=== PATIENT | male | born 1980 | race Caucasian/White ===

== ENCOUNTER 2016-06-01 07:58 | Emergency (ER) | payer OTHER ==
[~2016-06-01] VITALS: Ht 185.4 cm; Wt 77.3 kg
[2016-06-01 08:00] VITALS: BP 137/91; PULSE 107; RESP 15; O2SAT 100
--- NOTE | 2016-06-01 08:20 | ED.REPORT ---
HPI-Abd Pain M Under 42 Date of Service Jun 01, 2016 ED Provider: Dr. Ferguson Pt is a 35 year old male with a history of Hepatitis C, who presents to the ED with concerns for intermittent right sided flank pain that started 3 months ago. He reports that he was initially seen in an ER (although he does not fully remember where) and referred to urology upon the pain's first presentation. Pt was seen by Dr. Nowak who ruled out kidney stones, or any other dangerous causes for his pain. He reports that his pain was spontaneously alleviated, but has returned over the last couple of days. He denies this pain feeling musculoskeletal. Pt states that the pain keeps him awake at night, and is mildly alleviated with ibuprofen and excessive hydration. He additionally reports hematuria and mild dysuria, but denies any abdominal pain, nausea, vomiting, fevers, or any other symptoms. 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 Nursing Notes Stated Complaint: RIGHT SIDE PAIN Chief Complaint: Male Abdominal Pain Nursing Notes Reviewed: Yes Allergies: Coded Allergies: No Known Allergies (Unverified Allergy, Unknown, 06/01/16) General Time Seen by MD: 08:20 Chief Complaint Flank pain right Hx Obtained From: Patient Arrived By: Walk-in Sudden in Onset?: Yes Onset Occurred: More than a week ago... (3 months) Symptom Duration: Intermittent Location: : Flank right Quality: Painful Severity: Current: Mild Severity: Maximum: Severe Similar Sx Previous: Yes Past Medical History Past Medical History Hepatitis C Past Surgical History "Blocked Ureter in 1986" Smoking History Current Every Day Smoker Ambulatory Status Independent Review of Systems Constitutional: Denies: Chills, Fever, Malaise, Weakness - generalized Respiratory: Denies: Non-productive cough, Shortness of breath, Wheezing Cardiovascular: Denies: Syncope GI: Denies: Abdominal pain, Constipation, Diarrhea, Nausea, Vomiting Male: Reports Dysuria, Reports Flank pain, Reports Hematuria, Denies Testicular pain, Denies Urinary frequency, Denies Urinary urgency Complete sys rev & neg: except as marked. Physical Exam Initial Vital Signs Vital Signs (First) Date Time Temp Pulse Resp B/P Pulse Ox O2 Delivery O2 Flow Rate FiO2 06/01/16 08:00 36.8 107 15 137/91 100 Room Air Initial VS: Reviewed Head / Eyes: Atraumatic, Normocephalic, PERRL ENT: Mucous membranes moist, Conjunctiva normal, No scleral icterus Neck: Supple, Non-tender, Full range of motion Skin: Warm, Dry, No cyanosis Neurologic: Alert, Oriented, Nonfocal Psychiatric: Mood/affect normal, Behavior normal, Normal thought content General/Constitutional: Awake, Alert, Well appearing, Well nourished, Cooperative Respiratory / Chest: Atraumatic, Breath sounds NL, Breath sounds = bilat, No respiratory distress Cardiovascular: Regular rhythm, Heart sounds NL, No gallop, No murmurs, No rubs Heart Rate / Rhythm: Positive: Tachycardia Abdomen: Atraumatic, Soft, No guarding, No rebound Tenderness/Guarding/Rebound: Positive: Tender RLQ... (Mild) Back: Atraumatic, Inspection NL Right CVAT , with surface tenderness Interpretation & Diagnostics Lab Results Interpretation Result Diagram: 06/01/16 0833 06/01/16 0833 Test 06/01/16 08:10 06/01/16 08:33 06/01/16 08:37 Urine Color Yellow (YELLOW) Urine Appearance Clear (CLEAR,HAZY) Urine pH 6.0 (5.0-8.0) Urine Specific [place] 1.013 (1.003-1.035) Urine Protein Negativemg/dL (NEG,TRACE) Urine Glucose (UA) Negativemg/dL (NEGATIVE) Urine Ketones Negativemg/dL (NEGATIVE) Urine Occult Blood Small (NEGATIVE) Urine Nitrite Negative (NEGATIVE) Urine Bilirubin Negative (NEGATIVE) Urine Urobilinogen Normalmg/dL (NORMAL) Urine Leukocyte Esterase Negative (NEGATIVE) Urine RBC 11-50/hpf (0-2) Urine WBC 0-5/hpf (0-5) Urine Epithelial Cells Few/hpf (NONE-MOD) Urine Crystals None seen (NONE SEEN) Urine Bacteria None/hpf (NONE-FEW) Urine Hyaline Casts None/lpf (NONE) Urine Granular Casts None seen (NONE SEEN) Urine Waxy Casts None seen (NONE SEEN) Urine Red Blood Cell Casts None seen (NONE SEEN) Urine White Blood Cell Casts None seen (NONE SEEN) Urine Mucus None seen (None Seen) Urine Trichomonas None seen (NONE SEEN) Urine Yeast None (NONE SEEN) Urinalysis Comment None Urine Culture Reflexed Not indicated White Blood Count 6.2th/mm3 (3.8-10.1) Red Blood Count 5.72mil/mm3 (4.40-5.80) Hemoglobin 16.8g/dL (13.8-17.2) Hematocrit 49.0% (41.0-50.0) Mean Corpuscular Volume 85.7fL (81-100) Mean Corpuscular Hemoglobin 29.4pg (27.0-35.0) Mean Corpuscular Hemoglobin Concent 34.3% (32.0-37.0) Red Cell Distribution Width 12.9% (12.3-15.4) Platelet Count 281bil/L (150-400) Neutrophils (%) (Auto) 66.0% (40-74) Lymphocytes (%) (Auto) 26.9% (14-46) Monocytes (%) (Auto) 6.5% (4-12) Eosinophils (%) (Auto) 0.2% (0-5) Basophils (%) (Auto) 0.2% (0-3) Sodium Level 137mEq/L (134-144) Potassium Level 4.4mEq/L (3.5-5.2) Chloride Level 100mEq/L (97-108) Carbon Dioxide Level 24mmol/L (18-29) Blood Urea Nitrogen 11mg/dL (6-20) Creatinine 0.87mg/dL (0.76-1.27) Estimat Glomerular Filtration Rate 107mL/min (>59) Glucose Level 121mg/dL (60-99) Calcium Level 9.6mg/dL (8.5-10.1) Total Bilirubin 0.7mg/dL (0.0-1.2) Aspartate Amino Transf (AST/SGOT) 30U/L (0-50) Alanine Aminotransferase (ALT/SGPT) 31U/L (0-44) Alkaline Phosphatase 54U/L (25-150) Total Protein 8.2g/dL (6.4-8.4) Albumin 4.4g/dL (3.4-5.0) Hold Roberts Top Tube Received (Received) Lab Results Interpretation: Bedside ultrasound showed no significant abnormalities, per US polygraph technician. Re-Eval/Medical Decision Source of Hx: Old records Summary of Info: Dr. Nowak informed him that he needed a cystoscopy, but he declined. Re-Evaluation/Progress #1: Time of Eval: 10:11 Re-Evaluation/Progress Note: Pt is rechecked and informed of his US and the plan to discharge him at this time. He understands and agrees, all questions are addressed. Re-Evaluation/Progress #2: Time of Eval: 10:45 Re-Evaluation/Progress Note: Patient is concerned that the pain medicine I have recommended will not be sufficient to control his pain. He requests Vicodin. I consulted the CLEANING PROFESSIONAL and I see that his claim that most recent narcotic prescription was by Dr. Ordonez in February is accurate. His last prescription prior to that was some months prior. I will prescribe 15 hydrocodone tablets to get him through the weekend but would not be willing to prescribe further beyond this point. Counseled Regarding: Diagnosis, Lab results, Need for follow-up, When/why to return to ED Patient Discharge & Departure Primary Impression: Right flank pain Additional Impression: Gross hematuria Disposition: Home Discharge Condition All VS Reviewed: Yes Condition: Stable Patient Instructions: Acute Hematuria (ED), Renal Colic (ED) Additional Instructions: Other than blood in urine and urine there is no other urinary abnormality. Ultrasound shows normal renal pictures. I strongly encourage you to see Dr. Eliu douglas for further evaluation including cystoscopy. For pain management I recommend copious oral hydration, ibuprofen 800 mg every 8 hours by the clock and Tylenol 1000 g every 6 hours. I discourage you from using stronger pain medications for this chronic condition at this time. Use hydrocodone/APAP 5/325 one or 2 at a time as needed for severe pain but keep in mind that this medication has Tylenol in it and should be included in your 4000 mg daily total of Tylenol. Referrals: NOPCP (PCP) Tyra Nowak MD Attestation Portions of this note were transcribed by Zeynep Fontaine. I, Dr. Ferguson personally performed the history, physical exam and medical decision-making; I reviewed and confirmed the accuracy of the information in the transcribed note. Signed by: Zeynep Bradley, 06/01/2016 10:12 copies to: Tyra Nowak MD, Kirk H MD Jun 01, 2016 08:20 ANJALI FONTAINE Jun 01, 2016 08:30
[2016-06-01 08:39] LABS: BASOPHILS % (AUTO) 0.2 % (0-3); EOSINOPHILS % (AUTO) 0.2 % (0-5); MONOCYTES % (AUTO) 6.5 % (4-12); Mean Corpuscular Hemoglobin 29.4 pg (27.0-35.0); Mean Corpuscular Volume 85.7 fL (81-100); Platelet Count 281 bil/L (150-400)
[2016-06-01 08:40] LABS: APPEARANCE,URINE CLEAR (CLEAR,HAZY); COLOR,URINE YELLOW (YELLOW); OCCULT BLOOD,URINE SMALL (NEGATIVE); UROBILINOGEN,URINE NORMAL (NORMAL)
--- NOTE | 2016-06-01 10:13 | DRSVH ---
PROCEDURE: US RETROPERITONEAL SONOGRAM ([id number]) INDICATIONS: Hematuria. TECHNIQUE: Real-time scanning was performed of the kidneys and bladder, with image documentation. COMPARISON: None. FINDINGS: Kidneys: Right kidney measures 11.9 cm long; left kidney measures 12.7 cm long. Right renal cortic al thickness is 1.1 cm; left renal cortical thickness is 1.3 cm. Renal cortical echotexture is moises l. No hydronephrosis. Bladder: There is partial distention of the urinary bladder limiting evaluation. Pre-void bladder vo lume is 40 mL. Ureteral jets not visualized. Miscellaneous: No free pelvic fluid. IMPRESSION: 1. No evidence of hydronephrosis. 2. Limited evaluation of the bladder due to incomplete distention. Dictated by: Rehan Cid M.D. on 06/01/2016 at 10:03 Approved by: Rehan Cid M.D. on 06/01/2016 at 10:03
[2016-06-01 10:24] VITALS: BP 120/79; PULSE 78; RESP 14; O2SAT 98
[2016-06-01] MEDS ORDERED: HYDR-4003 PO (10:48)
== END 2016-06-01 10:59 | disposition home or self-care (01) ==
LOC: SED 07:58
DX: R10.31 Right lower quadrant pain (principal); R31.0 Gross hematuria; F17.200 Nicotine dependence, unspecified, uncomplicated; Z86.19 Personal history of other infectious and parasitic diseases